=== PATIENT | male | born 1965 | race Caucasian/White ===

== ENCOUNTER 2016-11-21 10:41 | Emergency (ER) | payer MEDICARE, MEDICAID ==
[~2016-11-21] VITALS: Wt 77.0 kg
[~2016-11-21 10:41] MED LIST: BUPR200T PO; BUS5 PO; CHLO100T11 PO; MIRT15TA5 PO; VENL75TA PO
[2016-11-21 12:33] LABS: BASOPHILS % 0.4 % (0.0-2.0); EOSINOPHILS # 0.2 10^3/ul (0.0-0.5); HEMATOCRIT 39.9 % (42.0-52.0); LYMPHOCYTES # 1.5 10^3/ul (0.8-2.9); LYMPHOCYTES % 19.8 % (15.0-51.0); MEAN CORPUSCULAR HEMOGLOBIN 28.1 pg (29.0-33.0); MEAN CORPUSCULAR HGB CONC 32.5 g/dl (32.0-37.0); MEAN CORPUSCULAR VOLUME 86.6 fl (82.0-101.0); MEAN PLATELET VOLUME 6.9 fl (7.4-10.4); MONOCYTE # 0.6 10^3/ul (0.3-0.9); MONOCYTES % 7.6 % (0.0-11.0); NEUTROPHIL # 5.2 10^3/ul (1.6-7.5); NEUTROPHILS % 69.2 % (39.0-77.0); PLATELET COUNT 353 10^3/UL (140-440); RED BLOOD COUNT 4.61 10^6/ul (4.70-6.10); RED CELL DISTRIBUTION WIDTH 16.7 % (11.5-14.5); UNCORRECTED WBC 7.6 10^3/ul (4.8-10.8); WHITE BLOOD COUNT 7.6 10^3/ul (4.8-10.8)
[2016-11-21 12:35] LABS: ADD UMIC YES; URINE BILIRUBIN (Dip) NEGATIVE (NEGATIVE); URINE BLOOD (Dip) TRACE (NEGATIVE); URINE COLOR LT. YELLOW (YELLOW); URINE GLUCOSE (Dip) NEGATIVE (NEGATIVE); URINE KETONES (Dip) NEGATIVE (NEGATIVE); URINE LEUKOCYTE ESTERASE (Dip) 1+ (NEGATIVE); URINE NITRITE (Dip) NEGATIVE (NEGATIVE); URINE TOTAL PROTEIN (Dip) NEGATIVE (NEGATIVE); URINE UROBILINOGEN (Dip) 0.2 E.U./dL (0.1-1.0)
[2016-11-21 12:38] LABS: CONDITION 1; LH ANALYZER COMMENTS 1
[2016-11-21 12:51] LABS: MUCUS,URINE MODERATE; URINE RBCS NONE SEEN /HPF (0)
--- NOTE | 2016-11-21 12:55 | ERA ---
ER Documentation Chief Complaint Date/Time DATE: 11/21/16 TIME: 12:55 Chief Complaint suicidal ideation with plan since today. auditory hallucinations per pt HPI 51-year-old undomiciled male with an extensive psychiatric history and multiple previous admissions presents the ED complaining of increasing hopelessness with suicidal ideations and command auditory hallucinations to hurt himself. He admits to recent crystal meth use. He is otherwise asymptomatic. Denies chest pain or palpitations. No shortness of breath or cough. No headache or neck pain. No dysuria, polyuria or hematuria. No fevers or chills. ROS All systems reviewed and are negative except as per history of present illness. Medications Home Meds Reported Medications Lorazepam* (Lorazepam*) 1 Mg Tablet, 1 MG PO HS Y for ANXIETY, #30 TAB 11/21/16 Venlafaxine Hcl* (Venlafaxine Hcl*) 75 Mg Tablet, 75 MG PO DAILY, TAB 06/15/16 Buspirone Hcl* (Buspar*) 5 Mg Tab, 5 MG PO TID, TAB 06/15/16 Bupropion Hcl* (Bupropion Hcl SR*) 200 Mg Tablet.sa, 200 MG PO DAILY, TAB.SA 06/15/16 Mirtazapine* (Mirtazapine*) 15 Mg Tablet, 45 MG PO HS, TAB 06/15/16 Chlorpromazine Hcl* (Chlorpromazine Hcl*) 100 Mg Tablet, 100 MG PO DAILY, TAB 06/15/16 Allergies Allergies: Coded Allergies: No Known Allergy (Unverified , 06/15/16) PMhx/Soc Reviewed in chart. As per HPI. Hx Neurological Disorder: Yes (PSYCH DISORDER) Hx Respiratory Disorders: No Hx Cardiac Disorders: No Hx Psychiatric Problems: No Hx Miscellaneous Medical Probl: No Hx Alcohol Use: No Hx Substance Use: Yes (METH. ) Hx Tobacco Use: No FmHx Psychiatric disease, cancer or stroke Physical Exam Vitals Vital Signs Date Time Temp Pulse Resp B/P Pulse Ox O2 Delivery O2 Flow Rate FiO2 11/21/16 10:45 98.8 112 20 140/81 98 Physical Exam Const: Alert, poor hygiene but in no acute distress. Head: Atraumatic Eyes: Normal Conjunctiva ENT: Normal External Ears, Nose and Mouth. Neck: Full range of motion. No meningismus. Resp: Clear to auscultation bilaterally Cardio: Regular rate and rhythm, no murmurs Abd: Soft, non tender, non distended. Normal bowel sounds Skin: No petechiae or rashes Back: No midline or flank tenderness Ext: No cyanosis, or edema Neur: Awake and alert Psych: Cooperative with pressured speech. Mood irritable depressed. Ongoing auditory hallucinations. Judgment impaired by suicidal ideations. Result Diagram: 11/21/16 1225 11/21/16 1225 Results 24 hrs Laboratory Tests Test 11/21/16 12:25 Acetaminophen Level < 10.0ug/ml Alanine Aminotransferase (ALT/SGPT) 31IU/L Albumin 3.9g/dl Albumin/Globulin Ratio 1.18 Alkaline Phosphatase 105IU/L Anion Gap 17 Aspartate Amino Transf (AST/SGOT) 35IU/L Basophils # 0.010^3/ul Basophils % 0.4% Blood Morphology Comment Blood Urea Nitrogen 11mg/dl Calcium Level 8.8mg/dl Carbon Dioxide Level 28mmol/L Chloride Level 103mmol/L Creatinine 0.99mg/dl Direct Bilirubin 0.00mg/dl Eosinophils # 0.210^3/ul Eosinophils % 3.0% Ethyl Alcohol Level 101.0mg/dl Globulin 3.30g/dl Glucose Level 108mg/dl Hematocrit 39.9% Hemoglobin 13.0g/dl Indirect Bilirubin 0.3mg/dl Lymphocytes # 1.510^3/ul Lymphocytes % 19.8% Mean Corpuscular Hemoglobin 28.1pg Mean Corpuscular Hemoglobin Concent 32.5g/dl Mean Corpuscular Volume 86.6fl Mean Platelet Volume 6.9fl Monocytes # 0.610^3/ul Monocytes % 7.6% Neutrophils # 5.210^3/ul Neutrophils % 69.2% Nucleated Red Blood Cells # 0.010^3/ul Nucleated Red Blood Cells % 0.0/100WBC Platelet Count 33091^3/UL Potassium Level 4.7mmol/L Red Blood Count 4.6110^6/ul Red Cell Distribution Width 16.7% Salicylates Level < 1.0mg/dl Sodium Level 143mmol/L Total Bilirubin 0.3mg/dl Total Protein 7.2g/dl Urine Amphetamines Screen POSITIVE Urine Barbiturates Negative Urine Benzodiazepines Screen Negative Urine Bilirubin NEGATIVE Urine Cannabinoids Negative Urine Clarity HAZY Urine Cocaine Screen Negative Urine Color LT. YELLOW Urine Glucose NEGATIVE% Urine Hemoglobin TRACE Urine Ketones NEGATIVE Urine Leukocyte Esterase 1+ Urine Microscopic RBC NONE SEEN/HPF Urine Microscopic WBC 5-10/HPF Urine Mucus MODERATE Urine Nitrite NEGATIVE Urine Opiates Screen Negative Urine Specific [place] 1.015 Urine Total Protein NEGATIVE Urine Urobilinogen 0.2 E.U./dL Urine pH 5.5 White Blood Count 7.610^3/ul Current Medications Medications (Trade) Dose Ordered Sig/Dax Route PRN Reason Start Time Stop Time Status Last Admin Dose Admin Lorazepam (Ativan) 1 mg ONCE ONCE IM 11/21/16 14:00 11/21/16 14:01 11/21/16 13:40 Procedures/MDM DOCUMENTS REVIEWED: ED nurse, prior ED, prior records MEDICAL DECISION MAKIN-year-old undomiciled male with an extensive psychiatric history and multiple previous admissions presents the ED complaining of increasing hopelessness with suicidal ideations and command auditory hallucinations to hurt himself. No significant medical comorbidities. Patient stable for psychiatric evaluation and admission. Evaluated by telemedicine psychiatrist Dr. Arana who recommends 5150 hold. Counseled patient regarding diagnosis, diagnostic results and plan for admission. 15:14. Endorsed to Dr. Hu for final disposition pending PMRT evaluation Departure Diagnosis: Primary Impression: Suicidal ideation Additional Impressions: Psychosis Qualified Code: F29 - Psychosis, unspecified psychosis type Methamphetamine abuse Condition: Stable (For transfer to mental health facility) JYOTI SARMIENTO MD Nov 21, 2016 12:55
[2016-11-21 12:56] LABS: BARBITURATES Negative (NEGATIVE); BENZODIAZEPINES Negative (NEGATIVE); CANNABINOIDS Negative (NEGATIVE); COCAINE Negative (NEGATIVE); OPIATES Negative (NEGATIVE)
[2016-11-21 12:57] LABS: ALBUMIN 3.9 g/dl (3.3-4.9); CHLORIDE 103 mmol/L (97-110); SODIUM 143 mmol/L (135-144)
[2016-11-21 12:58] LABS: POTASSIUM 4.7 mmol/L (3.5-5.1)
[2016-11-21 12:59] LABS: CREATININE 0.99 mg/dl (0.61-1.24)
[2016-11-21 13:00] LABS: ALANINE AMINOTRANSFERASE 31 IU/L (13-69); ALBUMIN/GLOBULIN RATIO 1.18; ALKALINE PHOSPHATASE 105 IU/L (42-121); ANION GAP 17 (8-16); ASPARTATE AMINO TRANSFERASE 35 IU/L (15-46); BILIRUBIN,INDIRECT 0.3 mg/dl (0-1.1); BILIRUBIN,TOTAL 0.3 mg/dl (0.2-1.3); BLOOD UREA NITROGEN 11 mg/dl (7-20); CALCIUM 8.8 mg/dl (8.4-10.2); CARBON DIOXIDE 28 mmol/L (21-31); GLUCOSE 108 mg/dl (70-220); TOTAL PROTEIN 7.2 g/dl (6.1-8.1)
[2016-11-21 13:02] LABS: ACETAMINOPHEN < 10.0 ug/ml (10.0-30.0); SALICYLATE < 1.0 mg/dl (5.0-30.0)
--- NOTE | 2016-11-21 13:44 | PSY ---
Date/Time of Note Date/Time of Note DATE: 11/21/16 TIME: 13:39 Psychiatric Subjective Eval Consent Pt consented to telemedicine: Yes Subjective Evaluation Patient location: emergency Chief Complaint: suicidal ideation with plan since today. auditory hallucinations per pt Reason for consult: Suicidal ideation History of present illness Patient is a 51 year old male with an extensive psychiatric history. He has been admitted to [facility] and multiple [facility] psychiatric facilities. Over the last 10 months, he has been homeless, not sleeping, had a few relapses on meth and is psychotic. He brought himself to the ER today because he is having strong suicidal thoughts of either overdosing or by copier operator. Patient reports he is hopeless, not sleeping, hearing voices and feeling paranoid. He is compliant with his medications. Past psychiatric history As noted above. Past hospitalizations and suicide attempts. Hospitalization: Suicidal Attempt(s) Family History Denies Medical history Problems Medical Problems: (1) Suicidal ideation Status: Acute Allergies: Coded Allergies: No Known Allergy (Unverified , 06/15/16) Substance Abuse Substance abuse history: Yes Prior substance abuse treatmen: Yes Social History Marital status: single Level of education: HS DPA/Conservatorship: No Occupation/[employer]: [employer] Psychiatric Objective Eval Physical Examination: Physical Examination: Applicable Sleep: Insomnia Appetite: Decreased Energy: Increased Interest: Increased Mental Status Examination: Appearance: Poor Hygiene Eye Contact: Fair Psychomotor Activity: Agitated Behavior: Cooperative Speech: Pressured Mood: Irritable Though Process: FOI Thought Content: Hallucinations Suicidal: Yes Homicidal: No On 72 hour hold: No Orientation: x3 Cognition: Alert Insight: Impared Judgement: Impared Attention Span: Distractible Laboratory Results Laboratory Tests Test 11/21/16 12:25 Acetaminophen Level < 10.0ug/ml Alanine Aminotransferase (ALT/SGPT) 31IU/L Albumin 3.9g/dl Albumin/Globulin Ratio 1.18 Alkaline Phosphatase 105IU/L Anion Gap 17 Aspartate Amino Transf (AST/SGOT) 35IU/L Basophils # 0.010^3/ul Basophils % 0.4% Blood Morphology Comment Blood Urea Nitrogen 11mg/dl Calcium Level 8.8mg/dl Carbon Dioxide Level 28mmol/L Chloride Level 103mmol/L Creatinine 0.99mg/dl Direct Bilirubin 0.00mg/dl Eosinophils # 0.210^3/ul Eosinophils % 3.0% Ethyl Alcohol Level 101.0mg/dl Globulin 3.30g/dl Glucose Level 108mg/dl Hematocrit 39.9% Hemoglobin 13.0g/dl Indirect Bilirubin 0.3mg/dl Lymphocytes # 1.510^3/ul Lymphocytes % 19.8% Mean Corpuscular Hemoglobin 28.1pg Mean Corpuscular Hemoglobin Concent 32.5g/dl Mean Corpuscular Volume 86.6fl Mean Platelet Volume 6.9fl Monocytes # 0.610^3/ul Monocytes % 7.6% Neutrophils # 5.210^3/ul Neutrophils % 69.2% Nucleated Red Blood Cells # 0.010^3/ul Nucleated Red Blood Cells % 0.0/100WBC Platelet Count 71597^3/UL Potassium Level 4.7mmol/L Red Blood Count 4.6110^6/ul Red Cell Distribution Width 16.7% Salicylates Level < 1.0mg/dl Sodium Level 143mmol/L Total Bilirubin 0.3mg/dl Total Protein 7.2g/dl Urine Amphetamines Screen POSITIVE Urine Barbiturates Negative Urine Benzodiazepines Screen Negative Urine Bilirubin NEGATIVE Urine Cannabinoids Negative Urine Clarity HAZY Urine Cocaine Screen Negative Urine Color LT. YELLOW Urine Glucose NEGATIVE% Urine Hemoglobin TRACE Urine Ketones NEGATIVE Urine Leukocyte Esterase 1+ Urine Microscopic RBC NONE SEEN/HPF Urine Microscopic WBC 5-10/HPF Urine Mucus MODERATE Urine Nitrite NEGATIVE Urine Opiates Screen Negative Urine Specific [place] 1.015 Urine Total Protein NEGATIVE Urine Urobilinogen 0.2 E.U./dL Urine pH 5.5 White Blood Count 7.610^3/ul Assessment and Plan Assessment/Diagnosis Candor I: unspecified psychotic disorder Recommendation/Plan Medication Management Per inpatient psychiatry. Can offer Zyprexa 10mg for calming affect while in ER , if needed. Psychotherapy N/A Pt. Caregiver/Family Education N/A Follow-up/Disposition Transfer to inpatient psychiatry. Patient is psychotic and reports suicidal ideation with plans and intent. Does not feel safe out of the hospital. 5150 Recommendation: TROY So Nov 21, 2016 13:44
[2016-11-21] MEDS ORDERED: LORAZEPAM 2 MG INJ IM ONE (14:00)
[2016-11-21] MEDS ORDERED: LORA1TAB PO (14:58)
--- NOTE | 2016-11-21 19:20 | QN ---
Documentation Comment Observation Note: Time: 4 hours Family Hx: Negative for diabetes Evaluation: Multiple exams showed improving symptoms and no evidence of clinical decompensation. Patient is awaiting psychiatric placement and transfer at this time. DIANN NICOLE MD Nov 21, 2016 19:20
[2016-11-21] MEDS ORDERED: OLANZAPINE (ODT) 5 MG TAB ODT STA (19:48)
[2016-11-21] MEDS ORDERED: LORAZEPAM 1 MG TAB PO ONE (21:00)
[2016-11-22 00:35] VITALS: BP 107/54; PULSE 71; RESP 17; TEMP 98.4
== END 2016-11-22 01:10 ==
LOC: E/R 10:41
DX: F29 Unspecified psychosis not due to a substance or known physiological condition (principal); R40.2252 Coma scale, best verbal response, oriented, at arrival to emergency department; F15.10 Other stimulant abuse, uncomplicated; R45.851 Suicidal ideations; R40.2362 Coma scale, best motor response, obeys commands, at arrival to emergency department; R40.2142 Coma scale, eyes open, spontaneous, at arrival to emergency department
CPT/HCPCS: 36415; 80053; 80306; 80307; 81001; 85025; 96372; 99285; J2060; 81003

== ENCOUNTER 2017-05-08 05:31 | Emergency (ER) | payer MEDICARE, MEDICAID ==
[~2017-05-08] VITALS: Ht 172.7 cm; Wt 72.5 kg
[~2017-05-08 05:31] MED LIST changes: +LORA1TAB PO
[2017-05-08 05:50] VITALS: Ht 172.7 cm; Wt 72.5 kg
--- NOTE | 2017-05-08 06:18 | ERA ---
ER Documentation Chief Complaint Date/Time DATE: 05/08/17 TIME: 06:17 Chief Complaint suicidal ideations x 2 days HPI 51-year-old male well-known to the ER who presents with suicidal ideations. The patient also admits to using methamphetamines. The patient is speaking rapidly. He states that he thinks he needs help. The patient states he does not know how he got the methamphetamine. He denies active plan. No headache chest pain or shortness of breath. ROS All systems reviewed and are negative except as per history of present illness. Medications Home Meds Reported Medications Lorazepam* (Lorazepam*) 1 Mg Tablet, 1 MG PO HS Y for ANXIETY, #30 TAB 11/21/16 Venlafaxine Hcl* (Venlafaxine Hcl*) 75 Mg Tablet, 75 MG PO DAILY, TAB 06/15/16 Buspirone Hcl* (Buspar*) 5 Mg Tab, 5 MG PO TID, TAB 06/15/16 Bupropion Hcl* (Bupropion Hcl SR*) 200 Mg Tablet.sa, 200 MG PO DAILY, TAB.SA 06/15/16 Mirtazapine* (Mirtazapine*) 15 Mg Tablet, 45 MG PO HS, TAB 06/15/16 Chlorpromazine Hcl* (Chlorpromazine Hcl*) 100 Mg Tablet, 100 MG PO DAILY, TAB 06/15/16 Allergies Allergies: Coded Allergies: ziprasidone (Verified Allergy, Unknown, swelling, 05/08/17) PMhx/Soc History of Surgery: No Anesthesia Reaction: No Hx Neurological Disorder: No Hx Respiratory Disorders: No Hx Cardiac Disorders: No Hx Psychiatric Problems: Yes Hx Miscellaneous Medical Probl: No Hx Alcohol Use: No Hx Substance Use: Yes (METH. ) Hx Tobacco Use: Yes (abuser) FmHx Family History: No diabetes Physical Exam Vitals Vital Signs Date Time Temp Pulse Resp B/P Pulse Ox O2 Delivery O2 Flow Rate FiO2 05/08/17 06:50 98.4 102 18 134/80 97 Room Air 05/08/17 05:50 99.0 93 20 143/80 98 Physical Exam General: Pressured speech, no distress Head: Normocephalic, atraumatic. Eyes: Pupils equally reactive, EOM intact ENT: Moist mucous membranes Neck: Supple, no lymphadenopathy Respiratory: Lungs clear bilaterally, no distress Cardiovascular: RRR, no murmurs, rubs, or gallops Abdominal: Soft, non-tender, non-distended, no peritoneal signs : Deferred MSK: No edema, no unilateral swelling, 5/5 strength Neurologic: Alert and oriented, moving all extremities, normal speech, no focal weakness, no cerebellar signs Skin: No rash Psych: Pressured speech, suicidal thoughts Result Diagram: 05/08/17 0645 05/08/17 0645 Results 24 hrs Laboratory Tests Test 05/08/17 06:45 White Blood Count 10.210^3/ul Red Blood Count 4.5710^6/ul Hemoglobin 12.7g/dl Hematocrit 38.2% Mean Corpuscular Volume 83.6fl Mean Corpuscular Hemoglobin 27.8pg Mean Corpuscular Hemoglobin Concent 33.2g/dl Red Cell Distribution Width 14.2% Platelet Count 61988^3/UL Mean Platelet Volume 8.3fl Neutrophils % 74.2% Lymphocytes % 17.4% Monocytes % 7.3% Eosinophils % 0.4% Basophils % 0.3% Nucleated Red Blood Cells % 0.0/100WBC Neutrophils # 7.610^3/ul Lymphocytes # 1.810^3/ul Monocytes # 0.810^3/ul Eosinophils # 0.010^3/ul Basophils # 0.010^3/ul Nucleated Red Blood Cells # 0.010^3/ul Sodium Level 143mmol/L Potassium Level 3.6mmol/L Chloride Level 99mmol/L Carbon Dioxide Level 27mmol/L Anion Gap 21 Blood Urea Nitrogen 11mg/dl Creatinine 1.12mg/dl Glucose Level 86mg/dl Calcium Level 9.1mg/dl Total Bilirubin 0.4mg/dl Direct Bilirubin 0.00mg/dl Indirect Bilirubin 0.4mg/dl Aspartate Amino Transf (AST/SGOT) 29IU/L Alanine Aminotransferase (ALT/SGPT) 37IU/L Alkaline Phosphatase 107IU/L Total Protein 8.2g/dl Albumin 4.9g/dl Globulin 3.30g/dl Albumin/Globulin Ratio 1.48 Urine Opiates Screen Negative Urine Barbiturates Negative Urine Amphetamines Screen Positive Urine Benzodiazepines Screen Negative Urine Cocaine Screen Negative Urine Cannabinoids Negative Ethyl Alcohol Level < 10.0mg/dl Current Medications Medications (Trade) Dose Ordered Sig/Dax Route PRN Reason Start Time Stop Time Status Last Admin Dose Admin Lorazepam (Ativan) 1 mg ONCE ONCE IM 05/08/17 06:30 05/08/17 06:31 DC 05/08/17 06:37 Procedures/MDM LAB INTERPRETATION: No acute process MEDICAL DECISION MAKING: The patient's presentation is consistent with underlying psychiatric illness and likely exacerbation of this illness and/or psychosis. I have a much lower clinical concern for delirium or acute organic pathology such as toxicologic, metabolic, ischemic, intracranial hemorrhage, infectious process. However, we must rule this out prior to relying a diagnosis of underlying psychiatric illness. The patient's workup will include medical screening examination, laboratory analysis, and diagnostic imaging such as EKG, chest x-ray or CT brain as indicated. If the patient's medical examination and laboratory analysis do not reveal acute organic pathology the patient will be medically cleared for psychiatric evaluation. ER COURSE: Ativan 1 mg IM provided The patient's laboratory analysis, diagnostic imaging do not suggest an acute organic pathology. At this time I believe the patient's presentation is very consistent with underlying psychiatric illness. The patient is medically cleared for psychiatric evaluation. I kept the patient and/or family informed of laboratory and diagnostic imaging results throughout the emergency room course. CONSULTATION: Psychiatric consultation: Telemetry medicine psychiatry has been consulted on this case to evaluate the patient for possible acute psychiatric illness that would require inpatient hospitalization. DISPOSITION PLAN: Pending psychiatric evaluation Departure Diagnosis: Primary Impression: Suicidal ideation Additional Impressions: Methamphetamine use Methamphetamine abuse Condition: Stable SPENCER MONTEMAYOR MD May 08, 2017 06:18
[2017-05-08] MEDS ORDERED: LORAZEPAM 2 MG INJ IM ONE (06:30)
[2017-05-08 06:50] VITALS: BP 134/80; PULSE 102; RESP 18; TEMP 98.4
[2017-05-08 06:56] LABS: BASOPHILS % 0.3 % (0.0-2.0); EOSINOPHILS % 0.4 % (0.0-7.0); HEMATOCRIT 38.2 % (42.0-52.0); HEMOGLOBIN 12.7 g/dl (14.0-18.0); LYMPHOCYTES # 1.8 10^3/ul (0.8-2.9); LYMPHOCYTES % 17.4 % (15.0-51.0); MEAN CORPUSCULAR HEMOGLOBIN 27.8 pg (29.0-33.0); MEAN CORPUSCULAR HGB CONC 33.2 g/dl (32.0-37.0); MEAN CORPUSCULAR VOLUME 83.6 fl (82.0-101.0); MEAN PLATELET VOLUME 8.3 fl (7.4-10.4); MONOCYTE # 0.8 10^3/ul (0.3-0.9); MONOCYTES % 7.3 % (0.0-11.0); NEUTROPHIL # 7.6 10^3/ul (1.6-7.5); NEUTROPHILS % 74.2 % (39.0-77.0); PLATELET COUNT 376 10^3/UL (140-415); RED BLOOD COUNT 4.57 10^6/ul (4.70-6.10); RED CELL DISTRIBUTION WIDTH 14.2 % (11.5-14.5); WHITE BLOOD COUNT 10.2 10^3/ul (4.8-10.8)
[2017-05-08 07:16] LABS: BARBITURATES Negative (NEGATIVE); BENZODIAZEPINES Negative (NEGATIVE); CANNABINOIDS Negative (NEGATIVE); COCAINE Negative (NEGATIVE); OPIATES Negative (NEGATIVE)
[2017-05-08 07:17] LABS: ALANINE AMINOTRANSFERASE 37 IU/L (13-69); ALBUMIN 4.9 g/dl (3.3-4.9); ALBUMIN/GLOBULIN RATIO 1.48; ALKALINE PHOSPHATASE 107 IU/L (42-121); ANION GAP 21 (8-16); ASPARTATE AMINO TRANSFERASE 29 IU/L (15-46); BILIRUBIN,INDIRECT 0.4 mg/dl (0-1.1); BILIRUBIN,TOTAL 0.4 mg/dl (0.2-1.3); BLOOD UREA NITROGEN 11 mg/dl (7-20); CALCIUM 9.1 mg/dl (8.4-10.2); CARBON DIOXIDE 27 mmol/L (21-31); CHLORIDE 99 mmol/L (97-110); CREATININE 1.12 mg/dl (0.61-1.24); GLUCOSE 86 mg/dl (70-220); POTASSIUM 3.6 mmol/L (3.5-5.1); SODIUM 143 mmol/L (135-144); TOTAL PROTEIN 8.2 g/dl (6.1-8.1)
[2017-05-08 07:20] LABS: ETHANOL < 10.0 mg/dl
--- NOTE | 2017-05-08 08:34 | PSY ---
Date/Time of Note Date/Time of Note DATE: 05/08/17 TIME: 08:30 Psychiatric Subjective Eval Consent Pt consented to telemedicine: Yes Subjective Evaluation Patient location: emergency Chief Complaint: suicidal ideations x 2 days Reason for consult: SI History of present illness Patient is a 51 year old male with an extensive psychiatric history. He was discharged from [facility] psych 2 days ago, relapsed on meth and presented to ED agitated and delusional, stating, he is going to kill himself; pt has been admitted to [facility]. Over the last 10 months, he has been homeless, not sleeping, had a few relapses on meth and is psychotic. He brought himself to the ER today because he is hearing voices telling him to torture himself to ; he is having strong suicidal thoughts of either overdosing or by surgical endoscopist. Patient reports he is hopeless, not sleeping, hearing voices and feeling paranoid. He is compliant with his medications. Past psychiatric history multiple in Hospitalization: yes Family History denies Medical history Problems Medical Problems: (1) Methamphetamine abuse Status: Acute (2) Methamphetamine abuse Status: Acute (3) Methamphetamine use Status: Acute (4) Psychosis Status: Acute (5) Suicidal ideation Status: Acute (6) Suicidal ideation Status: Acute (7) Suicidal ideation Status: Acute Allergies: Coded Allergies: ziprasidone (Verified Allergy, Unknown, swelling, 05/08/17) Substance Abuse Substance abuse history: Yes Prior substance abuse treatmen: Yes Social History Marital status: single Level of education: some college DPA/Conservatorship: No Occupation/Snf: on [employer] Psychiatric Objective Eval Physical Examination: Sleep: Insomnia Energy: Increased Interest: Increased Mental Status Examination: Appearance: Disheveled Eye Contact: Good Psychomotor Activity: Agitated Behavior: Cooperative Speech: Pressured AFFECT: Libile, Depressed Mood: Anxious Though Process: Tangential Thought Content: Delusions, Hallucinations Suicidal: Yes Homicidal: No On 72 hour hold: No Orientation: x3 Cognition: Alert Insight: Impared Judgement: Impared Laboratory Results Laboratory Tests Test 05/08/17 06:45 White Blood Count 10.210^3/ul Red Blood Count 4.5710^6/ul Hemoglobin 12.7g/dl Hematocrit 38.2% Mean Corpuscular Volume 83.6fl Mean Corpuscular Hemoglobin 27.8pg Mean Corpuscular Hemoglobin Concent 33.2g/dl Red Cell Distribution Width 14.2% Platelet Count 45866^3/UL Mean Platelet Volume 8.3fl Neutrophils % 74.2% Lymphocytes % 17.4% Monocytes % 7.3% Eosinophils % 0.4% Basophils % 0.3% Nucleated Red Blood Cells % 0.0/100WBC Neutrophils # 7.610^3/ul Lymphocytes # 1.810^3/ul Monocytes # 0.810^3/ul Eosinophils # 0.010^3/ul Basophils # 0.010^3/ul Nucleated Red Blood Cells # 0.010^3/ul Sodium Level 143mmol/L Potassium Level 3.6mmol/L Chloride Level 99mmol/L Carbon Dioxide Level 27mmol/L Anion Gap 21 Blood Urea Nitrogen 11mg/dl Creatinine 1.12mg/dl Glucose Level 86mg/dl Calcium Level 9.1mg/dl Total Bilirubin 0.4mg/dl Direct Bilirubin 0.00mg/dl Indirect Bilirubin 0.4mg/dl Aspartate Amino Transf (AST/SGOT) 29IU/L Alanine Aminotransferase (ALT/SGPT) 37IU/L Alkaline Phosphatase 107IU/L Total Protein 8.2g/dl Albumin 4.9g/dl Globulin 3.30g/dl Albumin/Globulin Ratio 1.48 Urine Opiates Screen Negative Urine Barbiturates Negative Urine Amphetamines Screen Positive Urine Benzodiazepines Screen Negative Urine Cocaine Screen Negative Urine Cannabinoids Negative Ethyl Alcohol Level < 10.0mg/dl Assessment and Plan Assessment/Diagnosis Maupin I: Schizoaffective d/o. Amphetamine intoxication Maupin II: defered Maupin III: as per record Maupin IV: severe Maupin V: gaf 25 Recommendation/Plan Medication Management thorazine 100 mg po bid; cogentin 1 mg po bid Psychotherapy defered to inpt Follow-up/Disposition transfer to inpt psych - pt is willing to go voluntary JOSEPHINE GILMAN MD May 08, 2017 08:34
[2017-05-08] MEDS ORDERED: CHLORPROMAZINE 25 MG TAB PO SCH (09:00)
[2017-05-08] MEDS ORDERED: BENZTROPINE 1 MG TAB PO SCH (09:00)
== END 2017-05-08 16:18 ==
LOC: E/R 05:31
DX: R45.851 Suicidal ideations (principal); R40.2252 Coma scale, best verbal response, oriented, at arrival to emergency department; F15.10 Other stimulant abuse, uncomplicated; R40.2142 Coma scale, eyes open, spontaneous, at arrival to emergency department; R40.2362 Coma scale, best motor response, obeys commands, at arrival to emergency department; Z87.891 Personal history of nicotine dependence
CPT/HCPCS: 36415; 80053; 80306; 80307; 85025; 96372; 99285; J2060